=== PATIENT | female | born 1995 | race Caucasian/White ===

== ENCOUNTER 2016-12-13 18:29 | Emergency (ER) | payer OTHER ==
[2016-12-13 18:40] VITALS: BMI 18.3
[2016-12-13] MEDS ORDERED: SODIUM CHLORIDE 1,000 ML IV STA (20:47)
--- NOTE | 2016-12-13 20:55 | PDOC ---
*Physical Exam - Vital Signs Last Vital Signs Temp Pulse Resp BP Pulse Ox 98.5 F 95 H 20 136/89 100 12/13/16 18:34 12/13/16 18:34 12/13/16 18:34 12/13/16 18:34 12/13/16 18:34 ED Treatment Course - LABORATORY CBC & Chemistry Diagram: 12/13/16 20:36 12/13/16 20:36 Medical Decision Making - Medical Decision Making 12/13/16 20:54 Pt seen by the Advanced Practice Provider under my direct supervision Ancillary studies reviewed I agree with plan as outlined by the Advanced Practice Provider WILMA Staley *DC/Admit/Observation/Transfer Diagnosis at time of Disposition: Syncope - Discharge Dispostion Disposition: HOME - Referrals Referrals: Ophelia Workman MD [Primary Care Provider] - - Patient Instructions Printed Discharge Instructions: DI for Syncope in Adults (Fainting) Additional Instructions: FOLLOW UP WITH YOUR PRIMARY CARE PROVIDER THIS WEEK. CALL TO SCHEDULE APPOINTMENT. CONTINUE CURRENT MEDICATIONS WELL. RETURN IF ANY CONCERNS FOR FURTHER EVALUATION. Print Language: TAJIK - Post Discharge Activity Work/School Note: Back to Work
[2016-12-13 20:57] LABS: BASOPHIL 0.6 % (0-2.0); EOSINOPHIL 0.6 % (0-4.5); MCH 31.5 pg (25.7-33.7); MCHC 33.8 g/dl (32.0-36.0); MEAN CELL VOLUME 93.4 fl (80-96); PLATELET COUNT 300 K/MM3 (134-434); RDW 14.4 % (11.6-15.6); URINE APPEARANCE CLEAR; URINE BILIRUBIN NEGATIVE (NEGATIVE); URINE COLOR STRAW; URINE GLUCOSE (UA) NEGATIVE (NEGATIVE); URINE KETONE NEGATIVE (NEGATIVE); URINE LEUK ESTERASE NEGATIVE (NEGATIVE); URINE NITRITE NEGATIVE (NEGATIVE); URINE PROTEIN NEGATIVE (NEGATIVE); URINE UROBILINOGEN NEGATIVE E.U./dl (0.2-1.0); WHITE BLOOD COUNT 9.3 K/mm3 (4.0-10.0)
[2016-12-13 21:00] LABS: URINE BLOOD 1+ (NEGATIVE)
[2016-12-13 21:28] LABS: ALBUMIN 3.8 g/dl (3.4-5.0); ANION GAP 8 (8-16); CO2 27 mmol/L (21-32); CREATININE 0.7 mg/dL (0.55-1.02); GLUCOSE,RANDOM 84 mg/dL (74-106); SGOT/AST 22 U/L (15-37); SGPT/ALT 29 U/L (12-78); TOT PROT 6.9 g/dl (6.4-8.2)
[2016-12-13 21:35] LABS: ALK PHOS 78 U/L (45-117); BILIRUBIN,TOTAL 0.7 mg/dL (0.2-1.0)
--- NOTE | 2016-12-13 22:44 | PDOC ---
History of Present Illness - General Chief Complaint: Weakness Stated Complaint: S.O.B. Time Seen by Provider: 12/13/16 20:21 History Source: Patient Exam Limitations: No Limitations - History of Present Illness Initial Comments: 12/13/16 22:39 21yo Female patient w/ PmHx: Bulimia presents to ED with Mother c/o Syncope. Patient states while talking with her mother today, she had feelings of wanting to pass out, patient reports lips, hands, feet became tingling and she began hyperventilating prior to passing out. Patient states usually her electrolytes are abnormal but she has not purged since last night. Patient denies any other complaints at this time. LNMP: 2 days ago. Presenting Symptoms: Syncope Timing/Duration: reports: resolved prior to arrival Past History - Travel Traveled outside of the country in the last 30 days: No Close contact w/someone who was outside of country & ill: No - Past Medical History Allergies/Adverse Reactions: Allergies Allergy/AdvReac Type Severity Reaction Status Date / Time No Known Allergies Allergy Verified 12/13/16 18:38 Home Medications: Ambulatory Orders NK [No Known Home Medication] 10/07/15 Psychiatric Problems: Yes (depression, bulemia, bipolar, ANXIETY) - Psycho/Social/Smoking Cessation Hx Anxiety: Yes Suicidal Ideation: No Smoking History: Never smoked Have you smoked in the past 12 months: Yes Number of Cigarettes Smoked Daily: 2 Hx Alcohol Use: No Drug/Substance Use Hx: No Substance Use Type: None Cardiac Specific PMH - Complaint Specific PMHX Abdominal Aortic Aneurysm: No Angina: No Cardiac Arrhythmia: No Cardiac Stent: No GERD: No Myocardial Infarction: No Pacemaker: No Pulmonary Embolus: No Valvular Heart Disease: No Peripheral Vascular Disease: No Review of Systems - Review of Systems Able to Perform ROS?: Yes Is the patient limited Maori proficient: No Constitutional: No: Chills, Fever, Unintentional Wgt. Loss, Unexplained wgt Loss HEENTM: No: Nose Congestion, Throat Pain, Throat Swelling, Mouth Pain, Difficulty Swallowing, Mouth Swelling Respiratory: No: Cough, Shortness of Breath, Wheezing Cardiac (ROS): Yes: Palpitations, Syncope. No: Chest Pain, Edema, Lightheadedness, Chest Tightness ABD/GI: No: Constipated, Diarrhea, Nausea, Poor Appetite, Poor Fluid Intake, Rectal Bleeding, Vomiting : No: Dysuria, Flank Pain, Hematuria, Testicular Swelling, Testicular Pain Musculoskeletal: No: Back Pain, Gout, Joint Pain, Muscle Pain Integumentary: No: Bruising, Erythema, Rash Neurological: Yes: Tingling. No: Headache, Numbness, Seizure, Tremors, Weakness , Unsteady Gait, Ataxia, Dizziness Psychiatric: Yes: Other (See HPI) All Other Systems: Reviewed and Negative *Physical Exam - Vital Signs Last Vital Signs Temp Pulse Resp BP Pulse Ox 98.5 F 95 H 20 136/89 100 12/13/16 18:34 12/13/16 18:34 12/13/16 18:34 12/13/16 18:34 12/13/16 18:34 - Physical Exam General Appearance: Yes: Appropriately Dressed, Thin. No: Apparent Distress, Mild Distress, Moderate Distress, Severe Distress HEENT: positive: EOMI, ARMANI, Normal ENT Inspection, Normal Voice, Symmetrical, TMs Normal, Pharynx Normal. negative: Pharyngeal Erythema, Tonsillar Exudate, Tonsillar Erythema, Nasal Congestion, Rhinorrhea, TM Bulging, TM Dull, TM Erythema Neck: positive: Trachea midline, Supple. negative: Lymphadenopathy (R), Lymphadenopathy (L) Respiratory/Chest: positive: Lungs Clear, Normal Breath Sounds. negative: Respiratory Distress, Accessory Muscle Use, Labored Respiration, Rapid RR Cardiovascular: positive: Regular Rhythm, Regular Rate Gastrointestinal/Abdominal: positive: Normal Bowel Sounds, Soft. negative: Distended, Guarding, Rebound, Tenderness Musculoskeletal: positive: Normal Inspection. negative: CVA Tenderness Extremity: positive: Normal Capillary Refill, Normal Inspection, Normal Range of Motion. negative: Pedal Edema, Swelling, Calf Tenderness, Erythema, Inflammation Integumentary: positive: Normal Color, Dry, Warm Neurologic: positive: pin sticker II-XII NML intact, Fully Oriented, Alert, Normal Mood/ Affect, Normal Response, Motor Strength / ED Treatment Course - LABORATORY CBC & Chemistry Diagram: 12/13/16 20:36 12/13/16 20:36 - ADDITIONAL ORDERS Additional order review: Laboratory Results 12/13/16 12/13/16 20:36 20:36 Sodium 140 Potassium 3.9 Chloride 105 Carbon Dioxide 27 Anion Gap 8 BUN 6 L D Creatinine 0.7 D Creat Clearance w eGFR > 60 Random Glucose 84 Calcium 9.0 Total Bilirubin 0.7 D AST 22 ALT 29 D Alkaline Phosphatase 78 Total Protein 6.9 Albumin 3.8 Urine Color Straw Urine Appearance Clear Urine pH 8.0 D Ur Specific [place] 1.009 Urine Protein Negative Urine Glucose (UA) Negative Urine Ketones Negative Urine Blood 1+ H Urine Nitrite Negative Urine Bilirubin Negative Urine Urobilinogen Negative Ur Leukocyte Esterase Negative Urine HCG, Qual Negative 12/13/16 20:36 RBC 4.15 MCV 93.4 MCHC 33.8 RDW 14.4 MPV 8.0 Neutrophils % 62.0 D Lymphocytes % 25.7 D Monocytes % 11.1 H Eosinophils % 0.6 D Basophils % 0.6 - RADIOLOGY Radiology Studies Ordered: Category Date Time Status HEAD CT WITHOUT CONTRAST [CT] Stat CT Scan 12/14/16 00:01 Taken CHEST PA & LAT [RAD] Stat Radiology 12/13/16 22:38 Ordered - Medications Given in the ED: ED Medications Discontinued Medications Generic Name Dose Route Start Last Admin Trade Name Freq PRN Reason Stop Dose Admin Sodium Chloride 1,000 mls @ 1,000 mls/hr 12/13/16 20:47 12/13/16 20:59 Normal Saline - IV 12/13/16 21:46 1,000 mls/hr ASDIR STA Administration *DC/Admit/Observation/Transfer Diagnosis at time of Disposition: Syncope Qualifiers: Syncope type: unspecified Qualified Code(s): R55 - Syncope and collapse - Discharge Dispostion Disposition: HOME Condition at time of disposition: Improved Admit: No - Patient Instructions Printed Discharge Instructions: DI for Syncope in Adults (Fainting) Additional Instructions: FOLLOW UP WITH YOUR PRIMARY CARE PROVIDER THIS WEEK. CALL TO SCHEDULE APPOINTMENT. CONTINUE CURRENT MEDICATIONS WELL. RETURN IF ANY CONCERNS FOR FURTHER EVALUATION. Print Language: KHMER - Post Discharge Activity Work/School Note: Back to Work
[2016-12-14 01:03] VITALS: BP 130/76; PULSE 87; TEMP 97.9
--- NOTE | 2016-12-14 16:18 | EKG ---
Test Reason : Blood Pressure : / mmHG Vent. Rate : 079 BPM Atrial Rate : 079 BPM P-R Int : 136 ms QRS Dur : 086 ms QT Int : 364 ms P-R-T Axes : 031 048 006 degrees QTc Int : 417 ms NORMAL SINUS RHYTHM NONSPECIFIC T WAVE ABNORMALITY ABNORMAL ECG WHEN COMPARED WITH ECG OF 20-JAN-2016 00:43, NO SIGNIFICANT CHANGE WAS FOUND Confirmed by RAD SCHERER MD ([id number]) on 12/14/2016 4:18:20 PM Referred By: Confirmed By:RAD SCHERER MD
== END 2016-12-14 01:03 | disposition home or self-care (01) ==
LOC: JER 18:29
DX: R55 Syncope and collapse (principal); F50.2 Bulimia nervosa; F41.9 Anxiety disorder, unspecified; F31.9 Bipolar disorder, unspecified
CPT/HCPCS: 36415; 70450-TC; 80053; 81003; 81015; 84703; 85025; 93005; 93010; 99284-25

== ENCOUNTER 2018-12-19 15:35 | Emergency (ER) | payer OTHER ==
[2018-12-19 15:43] VITALS: BMI 21.2
--- NOTE | 2018-12-19 15:44 | PDOC ---
Rapid Medical Evaluation Chief Complaint: Pain, Acute Time Seen by Provider: 12/19/18 15:40 Medical Evaluation: Allergies Allergy/AdvReac Type Severity Reaction Status Date / Time No Known Allergies Allergy Verified 12/13/16 18:38 12/19/18 15:42 I have performed a brief in-person evaluation of this patient. The patient presents with a chief complaint of: 12wks with suprapbic cramping abdominal pains since this AM. Denies vaginal bleeding. Denies dysuria Pertinent physical exam findings: A&O x 3 in NAD I have ordered the following: UA, UCX, t&S. CBC,CMP The patient will proceed to the ED for further evaluation. Discharge Disposition - Diagnosis Abdominal pain during Qualifiers: Trimester: second trimester Qualified Code(s): O26.892 - Other specified related conditions, second trimester - Discharge Dispostion Condition at time of disposition: Stable - Referrals - Patient Instructions - Post Discharge Activity
[2018-12-19 16:00] LABS: BASO % 0.4 % (0-2.0); EOS % 0.1 % (0-4.5); HEMATOCRIT 33.2 % (32.4-45.2); HEMOGLOBIN 11.1 GM/dL (10.7-15.3); LYMPH % 12.4 % (8-40); MCH 29.6 pg (25.7-33.7); MCHC 33.4 g/dl (32.0-36.0); MEAN CELL VOLUME 88.7 fl (80-96); MEAN PLT VOLUME 6.9 fl (7.5-11.1); MONO % 3.6 % (3.8-10.2); NEUT % 83.5 % (42.8-82.8); PLATELET COUNT 408 K/MM3 (134-434); RBC 3.74 M/mm3 (3.60-5.2); RDW 13.5 % (11.6-15.6); WHITE BLOOD COUNT 11.4 K/mm3 (4.0-10.0)
--- NOTE | 2018-12-19 16:02 | PDOC ---
Attending Attestation - Physicial Exam PE: 12/19/18 17:25 GENERAL: Awake, alert, and fully oriented, in no acute distress HEAD: No signs of trauma EYES: PERRLA, EOMI, sclera anicteric, conjunctiva clear ENT: Auricles normal inspection, hearing grossly normal, nares patent, oropharynx clear without exudates. Moist mucosa NECK: Normal ROM, supple, no lymphadenopathy, JVD, or masses LUNGS: Breath sounds equal, clear to auscultation bilaterally. No wheezes, and no crackles HEART: (+)Tachy. Normal S1 and S2, no murmurs, rubs or gallops ABDOMEN: Soft, nontender, normoactive bowel sounds. No guarding, no rebound. No masses EXTREMITIES: Normal range of motion, no edema. No clubbing or cyanosis. No cords, erythema, or tenderness NEUROLOGICAL: Cranial nerves II through XII grossly intact. Normal speech. SKIN: Warm, Dry, normal turgor, no rashes or lesions noted PELVIC EXAM: Laying in position. Acutely tender LLQ, RLQ and suprapubic area. <Magui Helm - Last Filed: 12/19/18 17:27> - Resident Resident Name: Huyen Cunningham - ED Attending Attestation I have performed the following: I have examined & evaluated the patient, The case was reviewed & discussed with the resident, I agree w/resident's findings & plan, Exceptions are as noted - Medical Decision Making 12/19/18 16:02 I, Dr. Pily Rosenberg, DO, attest that this document has been prepared under my direction and personally reviewed by me in its entirety. I further attest, that it accurately reflects all work, treatment, procedures and medical decision -making performed by me. 12/19/18 16:36 a/p: 23yo at 12 weeks gestation with N/V and lower pelvic cramping -yellowish/white discharge, CMT -labs and ua sent from [facility] -will add GC/CHl -pt is taking oral vitamins -no diarrhea -pt in acute distress and uncomfortable -will add tvus to eval ovaries -tylenol for pain -ivf hydration -has not seen COUNTY AGENT for this preg 12/19/18 18:15 bedside ultrasound shows IUP with FHR 156 12/19/18 18:38 pt is 0+ 12/19/18 19:14 pt is 15 weeks gestation, placenta previa will treat cervicitis blood in urine, but no hydro, no uti pt stable for dc to home with tylenol for pain and follow up with COUNTY AGENT <Pily Rosenberg - Last Filed: 12/19/18 19:14> - HPI HPI: The patient is a 23 year old female (currently 12 weeks ), with a significant PMH of depression, bulimia, bipolar, and anxiety, who presents to the emergency department today complaining abdominal pain for one day. Patient describes the pain as intermittent, cramping, and a 6/10 in nature. Patient reports yellow discharge and decreased appetite. She endorses nausea and vomiting, but notes this has been her baseline secondary to her . LBM was yesterday and normal. The patient denies chest pain, shortness of breath, headache and dizziness. Denies fever, chills, nausea, vomit, diarrhea and constipation. Denies dysuria, frequency, urgency and hematuria. Denies vaginal bleeding. Allergies: NKA Past surgical history: None reported Social history: No reported PCP: Doesnt recall OBGYN: Doesnt recall 12/19/18 17:59 - Medical Decision Making EXAM#: TYPE/EXAM: RESULT: [id number] US/KIDNEY / RENAL US [id number] US/PELVIC / BLADDER US Abdominal pain. Blood in urine. Impression: Both kidneys appear unremarkable without gross evidence of stones or hydronephrosis. Partially distended urinary bladder without gross wall thickening. Bilateral ureteral jets were not visualized. Small amount of postvoid urine residue, 34 cc. Reported By: Bridger Hayden MD 12/19/18 18:46 EXAM#: TYPE/EXAM: RESULT: [id number] US/OB LIMITED US [id number] US/TRANSVAGINAL US PREG Lower abdominal pain. . Impression: Single live intrauterine with average sonographic gestational age of 15 weeks 2 days. Posterior placenta that appears to be reaching and covering the internal cervical os compatible with placenta previa. Close follow-up is needed. Reported By: Bridger Hayden MD 12/19/18 18:51 Documentation prepared by ZIA Rome, acting as chief medical director for Pily Rosenberg DO. 12/19/18 19:16 <Elisa Apple - Last Filed: 12/19/18 19:18> Heart Score/ECG Review - ECG Intrepretation Comment:: 12/19/18 16:54 sinus at 84, nl axis, nl interval, no acute st/t wave findings, nonspecific t wave inversions in III <Pily Rosenberg - Last Filed: 12/19/18 19:14> Attestations - Attestations 12/19/18 17:27 Documentation prepared by Magui Helm, acting as chief medical director for Pily Rosenberg DO. <Magui Helm - Last Filed: 12/19/18 17:27>
[2018-12-19 16:16] LABS: EPI CELLS 2.7 /HPF (0-5/HPF); PH,URINE 6.5 (5.0-8.0); URINE APPEARANCE CLEAR; URINE BACTERIA 32.8 /hpf (NEGATIVE); URINE BILIRUBIN NEGATIVE (NEGATIVE); URINE CASTS 1 /hpf (0-8); URINE COLOR YELLOW; URINE GLUCOSE (UA) NEGATIVE (NEGATIVE); URINE KETONE 2+ (NEGATIVE); URINE LEUK ESTERASE NEGATIVE (NEGATIVE); URINE NITRITE NEGATIVE (NEGATIVE); URINE PROTEIN NEGATIVE (NEGATIVE); URINE RBC 4 /hpf (0-4); URINE UROBILINOGEN 0.2 mg/dL (0.2-1.0); URINE WBC 2 /hpf (0-5)
--- NOTE | 2018-12-19 16:18 | PDOC ---
History of Present Illness - General Chief Complaint: Pain, Acute Stated Complaint: ABD PAIN 3MONTHS PG Time Seen by Provider: 12/19/18 15:40 - History of Present Illness Initial Comments: 23yo F currently 12 weeks presenting with abdominal pain. Patient describes the pain as similar to a menstrual cramp. It is rated 6/10 and started this morning. The pain is constant but get worse intermittently. She has not taken anything at home for her pain: "I've been able to take it" and decided to come to the ED upon prompting by family and friends. Patient endorses nausea and dry heaving that she attributes to , however, today she vomited once about two hours prior to history-taking. Does not currently endorse nausea. Last bowel movement was yesterday and was a normal formed brown stool without blood. Denies surgical history. Patient presented to [facility] two days ago and says they performed an ultrasound that confirmed an intrauterine . She was not able to make it to an munitions handler supervisor appointment two weeks ago, but has an appointment to see her munitions handler supervisor on 12/28/18. Denies vaginal bleeding. Endorses yellow discharge. No urinary symptoms. Has had a lessened appetite today. No fever or chills. PCP: Patient does not remember the name locomotive inspector: Patient does not remember the name Past History - Past Medical History Allergies/Adverse Reactions: Allergies Allergy/AdvReac Type Severity Reaction Status Date / Time No Known Allergies Allergy Verified 12/13/16 18:38 Home Medications: Ambulatory Orders Vit 93/Iron Fum/Folic [ Formula Tablet] 1 each PO DAILY COPD: No Disorders: No Psychiatric Problems: Yes (depression, bulemia, bipolar, ANXIETY) - Surgical History GI Surgery: No - Reproductive History Is Patient Now?: Yes (#): 1 Para: 0 Cervical CA: No Dysfunctional Uterine Bleeding: No Ectopic : No Endometrial CA: No Polycystic Ovaries: No Therapeutic (s) & number: No Tubal Ligation: No - Immunization History Immunization Up to Date: No - Suicide/Smoking/Psychosocial Hx Smoking History: Never smoked Have you smoked in the past 12 months: No Number of Cigarettes Smoked Daily: 2 Information on smoking cessation initiated: No Hx Alcohol Use: No Drug/Substance Use Hx: No Substance Use Type: None Review of Systems - Review of Systems Comments:: Constitutional: no fever, no chills HEENT: no throat pain, no dysphagia Cardiovascular: no chest pain, no palpitations Respiratory: no cough, no shortness of breath Gastrointestinal: +abdominal pain, +nausea Genitourinary: no dysuria, no frequency Musculoskeletal: no myalgia, no arthralgia Skin: no rash, no itching Neurologic: no headache, no weakness *Physical Exam - Vital Signs Last Vital Signs Temp Pulse Resp BP Pulse Ox 98.6 F 94 H 18 136/79 98 12/19/18 15:40 12/19/18 15:40 12/19/18 15:40 12/19/18 15:40 12/19/18 16:05 - Physical Exam Comments: General: Awake, alert, and fully oriented, laying in position Head: No signs of trauma Eyes: EOMI, sclera anicteric ENT: Moist mucus membranes Neck: Normal ROM, supple Lungs: Lungs clear, Normal breath sounds Cardio: Regular rhythm, S1 and S2 present Abdomen: Tender to palpation most focal to suprapubic region and LLQ. No CVA tenderness. Extremities: Normal range of motion, Distal pulses present SKIN: Warm, Dry, normal turgor Neurologic: Cranial nerves II through XII grossly intact. Normal speech Pelvic exam: External genitalia without erythema, exudate or discharge. Vaginal vault is with white-yellow discharge. Cervix is of normal color without lesion. There is no bleeding noted. Uterus is noted to be of appropriate size and nontender. Cervical motion tenderness is elicited. No masses are palpated. The adnexa are without masses or tenderness. ED Treatment Course - LABORATORY CBC & Chemistry Diagram: 12/19/18 15:47 12/19/18 15:47 - ADDITIONAL ORDERS Additional order review: Laboratory Results 12/19/18 15:45 Urine Color Yellow Urine Appearance Clear Urine pH 6.5 Ur Specific [place] 1.019 Urine Protein Negative Urine Glucose (UA) Negative Urine Ketones 2+ H Urine Blood 1+ H Urine Nitrite Negative Urine Bilirubin Negative Urine Urobilinogen 0.2 Ur Leukocyte Esterase Negative Urine WBC (Auto) 2 Urine RBC (Auto) 4 Urine Casts (Auto) 1 U Epithel Cells (Auto) 2.7 Urine Bacteria (Auto) 32.8 12/19/18 15:47 RBC 3.74 MCV 88.7 MCHC 33.4 RDW 13.5 MPV 6.9 L D Neutrophils % 83.5 H D Lymphocytes % 12.4 D Monocytes % 3.6 L Eosinophils % 0.1 D Basophils % 0.4 Medical Decision Making - Medical Decision Making 23yo F currently 12 weeks presenting with abdominal pain. DDX including but not limited to threatened , ovarian torsion, tubo- ovarian abscess, cervicitis 1LNS, 1g Ofirmev, 4mg Zofran TVUS, Renal US Labs Bedside transabdominal ultrasound confirmed IUP with FHR of 156 Patient reporting improvement in pain after receiving medicines, now less than 12/19/18 17:35 No anemia, slight leukocytosis WBC=11.4 CMP within normal limits UA with 1+ blood and bacteriuria (likely from cervicitis)>> Bladder/Renal US ordered Treating for cervicitis: Ceftriaxone 250mg IM and Azithromycin 1000mg po Will reassess 12/19/18 19:19 US reports: Single live intrauterine with average sonographic gestational age of 15 weeks 2 days. Posterior placenta that appears to be reaching and covering the internal cervical os compatible with placenta previa. Close follow-up is needed. Both kidneys appear unremarkable without gross evidence of stones or hydronephrosis. Partially distended urinary bladder without gross wall thickening. Bilateral ureteral jets were not visualized. Small amount of postvoid urine residue, 34 cc. 12/19/18 19:21 While placenta is covering cervical os, patient is still under 20 weeks and the placenta may migrate. She is amenable to following-up with her munitions handler supervisor. Advised pelvic rest. Patient discharged 12/19/18 19:58 *DC/Admit/Observation/Transfer Diagnosis at time of Disposition: Cervicitis Abdominal pain during Qualifiers: Trimester: second trimester Qualified Code(s): O26.892 - Other specified related conditions, second trimester - Discharge Dispostion Disposition: HOME Condition at time of disposition: Stable - Referrals Schedule a call back: test result Referrals: Isela Santiago MD [Primary Care Provider] - Mahesh Serrano MD [Staff Physician] - - Patient Instructions Printed Discharge Instructions: DI for Placenta Previa, DI for Abdominal Pain - - Early , DI for Acute Cervicitis Additional Instructions: You were seen in the Emergency Department for abdominal pain. Your hormone (beta-Hcg) was 89147.5 today. We treated you for cervicitis in the department with antibiotics. Ultrasound indicated something called previa which cannot be diagnosed until after 20 weeks of . Pelvic rest is recommended until your munitions handler supervisor says otherwise. Do not place anything in the vagina. Follow-up with your munitions handler supervisor specialist at your appointment. Call to see if your appointment can be moved up. In case you are not able to see your doctor, we have referred you to another munitions handler supervisor specialist. Return to the Emergency Department if you experience: -heavy bleeding (more than two pads per hour for two hours) -severe pain -lightheadedness -shortness of breath -high fever -any other concerning symptoms - Post Discharge Activity
[2018-12-19 16:27] LABS: ALBUMIN 3.3 g/dl (3.4-5.0); ALK PHOS 57 U/L (45-117); ANION GAP 13 MMOL/L (8-16); BILIRUBIN,TOTAL 0.6 mg/dL (0.2-1); BLOOD UREA NITROGEN 9 mg/dL (7-18); CALCIUM 7.7 mg/dL (8.5-10.1); CHLORIDE 101 mmol/L (98-107); CO2 22 mmol/L (21-32); CREATININE 0.6 mg/dL (0.55-1.3); GLUCOSE,RANDOM 76 mg/dL (74-106); SGOT/AST 40 U/L (15-37); SGPT/ALT 22 U/L (13-61); SODIUM 136 mmol/L (136-145); TOT PROT 6.9 g/dl (6.4-8.2)
[2018-12-19] MEDS ORDERED: SODIUM CHLORIDE 1,000 ML IV STA (16:37)
[2018-12-19] MEDS ORDERED: ONDANSETRON 4 MG/2 ML VIAL IVPUSH ONE (16:37)
[2018-12-19] MEDS ORDERED: ACETAMINOPHEN 1000 MG/100 ML VIAL (NON FORMULARY) IVPB ONE ×2 (16:40→16:56)
[2018-12-19] MEDS ORDERED: ACETAMINOPHEN INJECTION 100 ML IVPB ONE (16:45)
[2018-12-19] MEDS ORDERED: ONDANSETRON 4 MG/2 ML VIAL ONE (17:02)
[2018-12-19] MEDS ORDERED: AZITHROMYCIN 500 MG TABLET PO ONE (19:15)
[2018-12-19 19:58] VITALS: BP 128/76; PULSE 88; TEMP 98.2
--- NOTE | 2018-12-20 10:23 | EKG ---
Test Reason : Blood Pressure : / mmHG Vent. Rate : 084 BPM Atrial Rate : 084 BPM P-R Int : 132 ms QRS Dur : 090 ms QT Int : 360 ms P-R-T Axes : 043 060 015 degrees QTc Int : 425 ms NORMAL SINUS RHYTHM NORMAL ECG WHEN COMPARED WITH ECG OF 13-DEC-2016 23:45, NO SIGNIFICANT CHANGE WAS FOUND Confirmed by DAVID BRUCE MD ([id number]) on 12/20/2018 10:23:21 AM Referred By: Confirmed By:DAVID BRUCE MD
== END 2018-12-19 20:03 | disposition home or self-care (01) ==
LOC: JER 15:35
PROC: BY4CZZZ Ultrasonography of Second Trimester, Single Fetus (ICD-10-PCS; principal; 2018-12-19)
PROC: 3E02329 Introduction of Other Anti-infective into Muscle, Percutaneous Approach (ICD-10-PCS; 2018-12-19)
PROC: 3E0337Z Introduction of Electrolytic and Water Balance Substance into Peripheral Vein, Percutaneous Approach (ICD-10-PCS; 2018-12-19)
PROC: 3E033GC Introduction of Other Therapeutic Substance into Peripheral Vein, Percutaneous Approach (ICD-10-PCS; 2018-12-19)
PROC: 3E033NZ Introduction of Analgesics, Hypnotics, Sedatives into Peripheral Vein, Percutaneous Approach (ICD-10-PCS; 2018-12-19)
DX: O26.892 Other specified pregnancy related conditions, second trimester (principal); O23.512 Infections of cervix in pregnancy, second trimester; Z3A.15 15 weeks gestation of pregnancy
CPT/HCPCS: 36415; 76775-TC; 76815; 76817-TC; 76856-TC; 80053; 81003; 84702; 85025; 86850; 86900; 86901; 87086; 87491; 87591; 93005; 93010; 99284-25; J0131; J7030

== ENCOUNTER 2019-05-25 20:10 | Inpatient (IN) | payer OTHER ==
--- NOTE | 2019-05-25 20:24 | PN ---
Progress Note (short form) - Note Progress Note: cx closed, vx -3 mi, fhr cat 1, no contraction, cervidil risks discussed , ulternatives explained , agreed to have cervidil induction
--- NOTE | 2019-05-25 20:32 | HP ---
Past Medical History - Primary Care Physician PCP:: Rogerio Fair - Admission Chief Complaint: 37.5 eeks, IUGR, for cervidil induction History of Present Illness: 24 yo edc by elsa 06/10/2019, with hx of IUGR admitted for cervidil induction, risks discussed , cx clp, vx -3 mi, fhr cat 1 History Source: Patient Limitations to Obtaining History: No Limitations - Past Medical History ...: 1 ...Para: 0 ...EDC by Elsa: 06/10/19 Heme/Onc: Yes: Anemia - Past Surgical History Hx Myomectomy: No Hx Transabdominal Cerclage: No - Smoking History Smoking history: Never smoked Have you smoked in the past 12 months: No Aproximately how many cigarettes per day: 2 - Alcohol/Substance Use Hx Alcohol Use: No - Social History Usual Living Arrangement: Yes: With Spouse History of Recent Travel: No Home Medications - Allergies Allergies/Adverse Reactions: Allergies Allergy/AdvReac Type Severity Reaction Status Date / Time No Known Allergies Allergy Verified 05/24/19 11:29 - Home Medications Home Medications: Ambulatory Orders Vit 93/Iron Fum/Folic [ Formula Tablet] 1 each PO DAILY Ferrous Sulfate [Feosol] 325 mg PO BID 05/24/19 Review of Systems - Review of Systems Constitutional: reports: No Symptoms Eyes: reports: No Symptoms HENT: reports: No Symptoms Neck: reports: No Symptoms Cardiovascular: reports: No Symptoms Respiratory: reports: No Symptoms Gastrointestinal: reports: No Symptoms Genitourinary: reports: No Symptoms Breasts: reports: No Symptoms Reported Musculoskeletal: reports: No Symptoms Integumentary: reports: No Symptoms Neurological: reports: No Symptoms Endocrine: reports: No Symptoms Hematology/Lymphatic: reports: No Symptoms Psychiatric: reports: No Symptoms Physical Exam - Maternity Constitutional: Yes: Well Nourished, No Distress, Calm Eyes: Yes: WNL, Conjunctiva Clear, EOM Intact HENT: Yes: WNL, Atraumatic, Normocephalic Neck: Yes: WNL, Supple, Trachea Midline Cardiovascular: Yes: WNL, Regular Rate and Rhythm Breast(s): Yes: WNL - Abdominal Exam/OB Fundal Height: 36 Number of Fetuses: Single Presentation: Vertex Contractions: No Intensity: Unaware Monitor Mode: External Heart Rate Location: [facility] Category: I Accelerations: Non-Uniform Decelerations: None - Vaginal Exam/OB Vaginal Bleediing: No Speculum Exam: No Dilatation (cm): closed Effacement (%): 0 Amniotic Membrane Status: Intact Station: -4 - Physical Exam Musculoskeletal: Yes: WNL Edema: Yes Edema: LLE: Trace, RLE: Trace Deep Tendon Reflex Grade: Normal +2 ...Motor Strength: WNL Psychiatric: Yes: WNL Hemorrhage Risk Assessment - Risk Factors Medium Risk Factors: Yes: None High Risk Factors: Yes: None Risk Score: 1 Risk Level: Medium Risk Problem List - Problems (1) with 37 weeks completed gestation Code(s): Z3A.37 - 37 WEEKS GESTATION OF (2) IUGR (intrauterine growth restriction) affecting care of mother Code(s): O36.5990 - MATERN CARE FOR OTH OR SUSP POOR FETL GRTH, UNSP TRI, UNSP Qualifiers: Fetus number: single or unspecified fetus Trimester: third trimester Qualified Code(s): O36.5930 - Maternal care for other known or suspected poor growth, third trimester, not applicable or unspecified Assessment/Plan admit, FHM cervidil induction GBS negative
[2019-05-25] MEDS ORDERED: BUTORPHANOL TARTRATE 1 MG/ML VIAL IVPUSH ONE (20:35)
[2019-05-25] MEDS ORDERED: PROMETHAZINE HCL 25 MG/1 ML VIAL IVPUSH ONE (20:35)
[2019-05-25] MEDS ORDERED: DINOPROSTONE 10 MG VAGINAL SUPPOSITORY VG ONE (21:30)
[2019-05-25] MEDS: DEXTROSE 5%-LACTATED RINGERS 1,000 ML IV SCH (21:30)
[2019-05-25 21:51] LABS: EOS % 0.4 % (0-4.5); HEMATOCRIT 25.7 % (32.4-45.2); HEMOGLOBIN 7.9 GM/dL (10.7-15.3); LYMPH % 24.8 % (8-40); MCHC 30.6 g/dl (32.0-36.0); MEAN CELL VOLUME 68.6 fl (80-96); MEAN PLT VOLUME 8.2 fl (7.5-11.1); MONO % 9.2 % (3.8-10.2); NEUT % 64.6 % (42.8-82.8); PLATELET COUNT 314 K/MM3 (134-434); RBC 3.75 M/mm3 (3.60-5.2); RDW 16.6 % (11.6-15.6)
[2019-05-25 22:00] VITALS: BMI 26.5
[2019-05-25 22:00] LABS: INR 0.99 (0.83-1.09); PROTHROMBIN TIME (PATIENT) 11.7 SEC (9.7-13.0)
[2019-05-25 22:03] LABS: ACTIVATED PTT 28.4 SECONDS (25.2-36.5)
[2019-05-25 22:09] LABS: CALCIUM 8.9 mg/dL (8.5-10.1); CREATININE 0.5 mg/dL (0.55-1.3); POTASSIUM 3.8 mmol/L (3.5-5.1)
[2019-05-25 22:11] LABS: BLOOD UREA NITROGEN 2.6 mg/dL (7-18)
[2019-05-25 22:47] LABS: MACROCYTOSIS 1+; OVALOCYTE 1+; PLATELET ESTIMATE NORMAL
[2019-05-26] MEDS: DEXTROSE 5%-LACTATED RINGERS 1,000 ML IV SCH ×3 (01:45→13:40)
--- NOTE | 2019-05-26 02:04 | PN ---
Progress Note (short form) - Note Progress Note: cx closed , 50 vx -3 mi, fhr cat 1, regular contraction q 2 min Problem List - Problems (1) with 37 weeks completed gestation Code(s): Z3A.37 - 37 WEEKS GESTATION OF (2) IUGR (intrauterine growth restriction) affecting care of mother Code(s): O36.5990 - MATERN CARE FOR OTH OR SUSP POOR FETL GRTH, UNSP TRI, UNSP Qualifiers: Fetus number: single or unspecified fetus Trimester: third trimester Qualified Code(s): O36.5930 - Maternal care for other known or suspected poor growth, third trimester, not applicable or unspecified
[2019-05-26] MEDS ORDERED: OXYTOCIN 30 UNITS in 0.9% NS 30 UNIT/500 ML INFUS.BAG IVPB ONE (08:38)
--- NOTE | 2019-05-26 09:08 | PN ---
Progress Note (short form) - Note Progress Note: cx closed 50 vx -4 mi, fhr cat 1, conraction ,mild q 3 min , cervidil was removed , pitocin risks discussed , Problem List - Problems (1) with 37 weeks completed gestation Code(s): Z3A.37 - 37 WEEKS GESTATION OF (2) IUGR (intrauterine growth restriction) affecting care of mother Code(s): O36.5990 - MATERN CARE FOR OTH OR SUSP POOR FETL GRTH, UNSP TRI, UNSP Qualifiers: Fetus number: single or unspecified fetus Trimester: third trimester Qualified Code(s): O36.5930 - Maternal care for other known or suspected poor growth, third trimester, not applicable or unspecified
[2019-05-26] MEDS ORDERED: OXYTOCIN 30 UNITS in 0.9% NS 30 UNIT/500 ML INFUS.BAG IVPB SCH (09:15)
[2019-05-26] MEDS ORDERED: BUTORPHANOL TARTRATE 1 MG/ML VIAL ONE ×2 (13:36)
[2019-05-26] MEDS ORDERED: PROMETHAZINE HCL 25 MG/1 ML VIAL ONE (13:37)
[2019-05-26] MEDS: ELECTROLYTE-148 SOLN 1,000 ML IV SCH ×2 (15:15→18:00)
--- NOTE | 2019-05-26 15:18 | PN ---
Progress Note (short form) - Note Progress Note: had SROM at 150pm , has regular contraction, very uncomfortable , cx 1 cm 70 vx -3 mr, clear fluid , FH tracing reactive with head compression with contractions , will reduce pitocin rate to 4 u. LT side , o2 , requesting epidural will revaluate in 1/2 hour Problem List - Problems (1) with 37 weeks completed gestation Code(s): Z3A.37 - 37 WEEKS GESTATION OF (2) IUGR (intrauterine growth restriction) affecting care of mother Code(s): O36.5990 - MATERN CARE FOR OTH OR SUSP POOR FETL GRTH, UNSP TRI, UNSP Qualifiers: Fetus number: single or unspecified fetus Trimester: third trimester Qualified Code(s): O36.5930 - Maternal care for other known or suspected poor growth, third trimester, not applicable or unspecified
[2019-05-26] MEDS ORDERED: LIDO 2%/EPI 1:200000 PRESRVFRE (20 ML SDVIAL) ONE (15:22)
[2019-05-26] MEDS ORDERED: BUPIVACAINE HCL/PF 2.5 MG/ML - 30 ML VIAL IJ ONE (15:23)
[2019-05-26] MEDS ORDERED: ELECTROLYTE-148 SOLN 1,000 ML IV SCH (15:30)
[2019-05-26] MEDS ORDERED: FENTANYL/BUPIVACAINE/NS/PF - PCEA - 50 ML DISP.SYRIN EP ONE ×2 (15:42→21:15)
[2019-05-26] MEDS ORDERED: NALOXONE HCL 0.4 MG/ML VIAL IVPUSH PRN (15:44)
[2019-05-26] MEDS ORDERED: FENTANYL/BUPIVACAINE/NS/PF - PCEA - 50 ML DISP.SYRIN EP SCH (15:45)
[2019-05-27] MEDS ORDERED: FENTANYL/BUPIVACAINE/NS/PF - PCEA - 50 ML DISP.SYRIN EP ONE (00:43)
[2019-05-27] MEDS ORDERED: ACETAMINOPHEN INJECTION 100 ML IVPB ONE (00:54)
[2019-05-27] MEDS ORDERED: CEFAZOLIN 2 GM/D5W 2 GM/50 ML ML IVPB ONE (00:55)
[2019-05-27] MEDS ORDERED: morphine SULFATE/PF 0.5 MG/ML (2cc Syringe - QUVA) EP ONE ×2 (01:12→01:21)
[2019-05-27] MEDS ORDERED: ONDANSETRON 4 MG/2 ML VIAL IVPUSH PRN (01:12)
[2019-05-27] MEDS ORDERED: LIDO 2%/EPI 1:200000 PRESRVFRE (20 ML SDVIAL) ONE (01:18)
--- NOTE | 2019-05-27 01:19 | PN ---
Progress Note, Labor Vaginal Exam #4 Labor Exam Date: 05/27/19 Labor Exam Time: 01:00 Heart Rate (range): 200 Dilatation: 8 Effacement (%): 90 Amniotic Membrane Status: Ruptured Presentation: Vertex/Position Station: -3 Remarks: Prolonged, 1hr, tachycardia, with good variability not resolving despite IVfluid bolus, position change, O2 by face mask Primary c/section recommended consent signed
[2019-05-27] MEDS ORDERED: METHYLERGONOVINE MALEATE 0.2 MG/1 ML AMP IM PRN ×2 (01:28)
[2019-05-27] MEDS ORDERED: WITCH HAZEL 50% (TUCKS) 40 PAD/JAR PAD TP PRN (01:28)
[2019-05-27] MEDS ORDERED: BENZOCAINE 20% 57 GM BOTTLE TP PRN (01:28)
[2019-05-27] MEDS ORDERED: ceFAZolin SODIUM 1 GM VIAL ONE (01:28)
[2019-05-27] MEDS ORDERED: IBUPROFEN 800 MG/8 ML IJ IVPB PRN (01:28)
[2019-05-27] MEDS ORDERED: diphenhydrAMINE HCL 25 MG CAPSULE (FP) PO PRN (01:28)
[2019-05-27] MEDS ORDERED: oxyCODONE HCL 5 MG TABLET PO PRN (01:28)
[2019-05-27] MEDS ORDERED: BENZOCAINE 28 GM HEMORRHOIDAL OINTMENT PR PRN (01:28)
[2019-05-27] MEDS ORDERED: DEXTROSE 5%-LACTATED RINGERS 1,000 ML IV SCH (01:30)
[2019-05-27] MEDS ORDERED: OXYTOCIN 20 UNITS in 0.9% NS 20 UNIT/1,000 ML INFUS.BAG IV SCH (01:30)
--- NOTE | 2019-05-27 01:35 | OP ---
Operative Note - Note: Operative Date: 05/27/19 Pre-Operative Diagnosis: 24yo P0 with tachycardia, suspected Chorioamnionitis, IUGR Operation: Primary c/section Findings: 1. Viable Female, 9/9, 5.6lb 2. Placenta to pathology 3. Normal bilateral tubes and ovaries Post-Operative Diagnosis: Same as Pre-op Surgeon: Jessy Arreguin [employer] Team Member: Daniel uDnlap Anesthesiologist/AUTOMATIC HEMMER: Sylvain Morris Anesthesia: Epidural Estimated Blood Loss (mls): 500 Drains, Volume Out (mls): 400 Fluid Volume Replaced (mls): 1,200 Operative Report Dictated: Yes
--- NOTE | 2019-05-27 01:35 | PN ---
Delivery - Delivery Section: Primary Type of Anesthesia: Epidural Episiotomy/Laceration: None EBL (cc): 500 Delivery, Single - Stages of Labor Date 1st Stage Initiatied: 05/26/19 Time 1st Stage Initiated: 15:00 Date of Delivery: 05/27/19 Time of Delivery: 01:52 Date Placenta Delivered: 05/27/19 Time Placenta Delivered: 01:53 Placenta: Yes: Expressed - Condition of Clothing Sorter/Bead Wire Insulator Present: Yes Name: Sammi Holman Gender: Female Weight: 5 lb 6 oz Position: Right, OA - 1 Minute Total Score: 9 5 Minutes Total Score: 9 - Feeding Plan Initial Plan: Elected not to breastfeed exclusively throughout hospitalization Remarks - Remarks Remarks: Uncomplicated delivery of head and shoulders Uterus closed in 2 layers peritoneum, muscle closed with 0-Bycin Fascia closed with 0 Vycril
[2019-05-27] MEDS: CEFAZOLIN 1 GM/D5W 1 GM/50 ML BAG IVPB SCH ×2 (01:45→10:57)
[2019-05-27] MEDS ORDERED: OXYTOCIN 10 UNITS/ML VIAL ONE (01:49)
[2019-05-27] MEDS ORDERED: OXYTOCIN 20 UNITS in 0.9% NS 20 UNIT/1,000 ML INFUS.BAG IV ONE (02:07)
[2019-05-27] MEDS: DEXTROSE 5%-LACTATED RINGERS 1,000 ML IV SCH (04:04)
--- NOTE | 2019-05-27 06:49 | OP ---
DATE OF OPERATION: 05/27/2019 PREOPERATIVE DIAGNOSIS: A 24-year-old para 0 at 37 weeks with tachycardia, suspected chorioamnionitis, intrauterine growth restriction. PROCEDURE PERFORMED: Primary section. POSTOPERATIVE DIAGNOSIS: A 24-year-old para 0 at 37 weeks with tachycardia, suspected chorioamnionitis, intrauterine growth restriction. FINDINGS: Viable female, scores of 9 and 9, weighing 5.6 pounds. Placenta to pathology. Normal bilateral tubes and ovaries. SURGEON: Jessy Arreguin M.D. BLACKSMITH HELPER: LINDY Medrano ANESTHESIOLOGIST: Sylvain Morris M.D. ANESTHESIA: Epidural. DESCRIPTION OF PROCEDURE: After ensuring informed consent, the patient was brought to the operating room, where she was placed in the dorsal supine position with a left lateral tilt. The abdomen was prepped and draped in sterile fashion. A Pfannenstiel incision was carried out with a scalpel and brought down to the level of the fascia with Bovie cautery. The fascia was incised in the midline and extended bilaterally with Bovie cautery. The fascia was dissected off the rectus abdominis muscle with Bovie cautery. The muscle was split in the midline. The peritoneum was tented and incised sharply, with good visualization of underlying abdominal organs. The peritoneal incision was extended laterally and superiorly and inferiorly. The bladder was retracted with a Murray. The gutters were packed with 2 lap sponges. The vesicouterine peritoneum was identified, tented with pickups and incised with Metzenbaum scissors, dissected off the lower uterine segment and retracted with the Murray. A uterine incision was created with the scalpel and extended bilaterally with bandage scissors. The head was delivered atraumatically in the AVANI position. The rest of the 's body was delivered atraumatically. The cord was clamped and cut. The was handed to awaiting pediatricians. The placenta was expressed. Cord sent for blood gases. The uterus was cleared of clots and debris, and repaired with 0 Biosyn in 2 layers, one locking and one imbricating. The gutters were cleared of clots and debris. The abdomen was irrigated. The peritoneum was repaired with 0 Biosyn after assuring excellent hemostasis in the abdominal cavity. The muscle was reapproximated with 0 Biosyn, and fascia closed with 0 Vicryl. Subcutaneous sutures were placed to reapproximate the Pfannenstiel incision, and the Pfannenstiel incision was closed with 4-0 Biosyn V-Loc suture. Excellent hemostasis throughout. ESTIMATED BLOOD LOSS: 500 mL. URINE OUTPUT: 400 mL. The patient received 1200 mL of IV fluids. She tolerated the procedure well. Instrument and sponge count was correct x2. The patient was brought to the recovery room in stable condition. Isabella [id number]
[2019-05-27] MEDS: IBUPROFEN 600 MG TABLET (FP) PO PRN (23:11)
[2019-05-27] MEDS: SIMETHICONE 80 MG TAB.CHEW (FP) PO PRN (23:11)
[2019-05-27] MEDS: oxyCODONE HCL 5 MG TABLET PO PRN (23:12)
[2019-05-28] MEDS ORDERED: BISACODYL 10 MG SUPP.RECT RC PRN (01:29)
[2019-05-28 07:26] LABS: BASO % 0.5 % (0-2.0); EOS % 1.9 % (0-4.5); HEMATOCRIT 21.5 % (32.4-45.2); LYMPH % 12.7 % (8-40); MCH 20.7 pg (25.7-33.7); MCHC 30.2 g/dl (32.0-36.0); MEAN CELL VOLUME 68.6 fl (80-96); MEAN PLT VOLUME 7.8 fl (7.5-11.1); MONO % 7.3 % (3.8-10.2); NEUT % 77.6 % (42.8-82.8); PLATELET COUNT 269 K/MM3 (134-434); RBC 3.13 M/mm3 (3.60-5.2); RDW 16.6 % (11.6-15.6); WHITE BLOOD COUNT 12.3 K/mm3 (4.0-10.0)
[2019-05-28 07:37] LABS: HEMOGLOBIN 6.5 GM/dL (10.7-15.3)
--- NOTE | 2019-05-28 10:23 | CONSULT ---
Consultation: REQUESTING PROVIDER: Dr. Simon (OBGyn) CONSULT REQUEST: We have been asked to medically evaluate this patient for Eye irritation. HISTORY OF PRESENT ILLNESS: 24 y/o F with PMHx of iron deficiency anemia, who recently delivered via c- section, present with b/l lower eyelid swelling. Patient had SROM, with prolonged delivery yesterday requiring (EBL 500mls, Fluid volume replaced 1200). After delivery, patient woke b/l itchiness of her eyes and worsening swelling of the lower eyelid. She mentions increasing eye rheum without associated discharge, and feels her eyelids are stuck together. She has had this in the past and says it typically occurs with her seasonal allergies. Her itchiness has improved with Diphenhydramine however the puffiness underneath her eyes persists. No associated changes in vision. She additionally complains of feeling a particle underneath her eyelids and is unable to remove it. Denies any associated fevers, chills, chest pain, SOB, nausea, vomiting, diarrhea, constipation. REVIEW OF SYSTEMS: As per HPI PHYSICAL EXAMINATION Vital Signs Temperature 98 F 05/28/19 01:50 Pulse Rate 75 05/28/19 01:50 Respiratory Rate 18 05/28/19 01:50 Blood Pressure 102/51 L 05/28/19 01:50 O2 Sat by Pulse Oximetry (%) 98 05/27/19 04:15 GENERAL: A&Ox3, NAD HEAD: NCAT EYES: PERRL, EOMI, No conjunctival Injection, No pain with movement or tenderness to palpation of surrounding tissue, no changes in vision, does not see flashers/floaters, No corneal ulcer present, No surrounding orbital cellulitis. ENT: Oropharynx clear without exudates. Moist mucous membranes. NECK: No JVD LUNGS: CTAB, No wheezes, no crackles HEART: Regular rate and rhythm, normal S1 and S2 without murmur ABDOMEN: Soft, nontender, not distended, hypoactive bowel sounds, no guarding, no rebound, Surgical dressing in the lower abdomen CDI EXTREMITIES: 2+ pulses, No peripheral edema. NEUROLOGICAL: Cranial nerves II-XII intact. Normal speech. SKIN: Warm, dry Laboratory Results - last 24 hr 05/25/19 05/25/19 05/28/19 20:45 20:45 06:45 WBC 12.3 H RBC 3.13 L Hgb 6.5 L* Hct 21.5 L D MCV 68.6 L MCH 20.7 L MCHC 30.2 L RDW 16.6 H Plt Count 269 MPV 7.8 Absolute Neuts (auto) 9.5 H Neutrophils % 77.6 D Lymphocytes % 12.7 D Monocytes % 7.3 Eosinophils % 1.9 D Basophils % 0.5 Nucleated RBC % 0 Sodium 137 Potassium 3.8 Chloride 105 Carbon Dioxide 24 Anion Gap 8 BUN 2.6 L* Creatinine 0.5 L Est GFR (CKD-EPI)AfAm 157.00 Est GFR (CKD-EPI)NonAf 135.46 Random Glucose 72 L Calcium 8.9 Crossmatch See Detail Active Medications Benzocaine (Americaine 20% Haynes -) 1 spray TP PRN PRN PRN Reason: Pain - Topical Benzocaine (Americaine Ointment -) 1 applic IL PRN PRN PRN Reason: Pain - Topical Bisacodyl (Dulcolax Suppository -) 10 mg RC PRN PRN PRN Reason: CONSTIPATION Diphenhydramine HCl (Benadryl Injection -) 25 mg IVPUSH Q4H PRN PRN Reason: Pruritis Last Admin: 05/27/19 14:27 Dose: 25 mg Diphenhydramine HCl (Benadryl -) 25 mg PO Q8H PRN PRN Reason: FOR ITCHING Ibuprofen (Motrin -) 600 mg PO Q4H PRN PRN Reason: PAIN LEVEL 1 - 3 Last Admin: 05/27/19 23:11 Dose: 600 mg Ibuprofen (Caldolor Injection -) 800 mg IVPB Q6H PRN PRN Reason: PAIN > 5 if PO not effective. Last Admin: 05/27/19 12:26 Dose: 800 mg Methylergonovine Maleate (Methergine Injection -) 0.2 mg IM Q4H PRN PRN Reason: Excessive Bleeding (L&D) Naloxone HCl (Narcan -) 0.4 mg IVPUSH PRN PRN PRN Reason: Sedation Ondansetron HCl (Zofran Injection) 4 mg IVPUSH Q4H PRN PRN Reason: NAUSEA Oxycodone HCl (Roxicodone -) 5 mg PO Q4H PRN PRN Reason: PAIN LEVEL 4 - 6 Last Admin: 05/27/19 23:12 Dose: 5 mg Oxycodone HCl (Roxicodone -) 10 mg PO Q4H PRN PRN Reason: PAIN LEVEL 7 - 10 Senna/Docusate Sodium (Pericolace -) 2 tablet PO HS PRN PRN Reason: CONSTIPATION Simethicone (Mylicon -) 80 mg PO Q4H PRN PRN Reason: GAS Last Admin: 05/27/19 23:11 Dose: 80 mg Witch Shahla/Glycerin (Tucks Pads -) 1 pad TP PRN PRN PRN Reason: Pain - Topical ASSESSMENT/PLAN: 24 y/o F with PMHx of iron deficiency anemia, who recently delivered via c- section, present with b/l lower eyelid swelling. #B/L Lower eyelid swelling, Improving -Likely due to seasonal allergy flair vs Allergic reaction -Continue Diphenydramine 25 Q6H Ronald x 4 doses, will transition to PRN after pending Improvement #Acute blood loss anemia -In the setting of recent -Continue pRBC transfusion as per OBGyn with follow up CBC Dispo: We will continue to follow the patient. Thank you for this consultative opportunity. Visit type - Emergency Visit Emergency Visit: No - New Patient This patient is new to me today: Yes Date on this admission: 05/28/19 - Critical Care Critical Care patient: No ATTENDING PHYSICIAN STATEMENT I saw and evaluated the patient. I reviewed the resident's note and discussed the case with the resident. I agree with the resident's findings and plan as documented. SUBJECTIVE: OBJECTIVE: ASSESSMENT AND PLAN:
[2019-05-28] MEDS: oxyCODONE HCL 5 MG TABLET PO PRN ×3 (11:39→21:23)
[2019-05-28] MEDS: IBUPROFEN 600 MG TABLET (FP) PO PRN ×3 (11:40→21:24)
[2019-05-28] MEDS: SIMETHICONE 80 MG TAB.CHEW (FP) PO PRN ×3 (11:41→21:23)
[2019-05-28] MEDS: diphenhydrAMINE HCL 25 MG CAPSULE (FP) PO SCH ×3 (12:18→23:31)
--- NOTE | 2019-05-28 12:57 | PN ---
Progress Note (short form) - Note Progress Note: Anesthesia POD#1 S/P under Epidural and Duramorph VSS,no N/V,pain is bearable. Legs fully recovered. Aretha Griggs MD.
--- NOTE | 2019-05-28 17:52 | PN ---
Teaching Attending Note Name of Resident: Milly Siddiqi ATTENDING PHYSICIAN STATEMENT I saw and evaluated the patient. I reviewed the resident's note and discussed the case with the resident. I agree with the resident's findings and plan as documented. consulted for eye swelling and pruritis SUBJECTIVE:states eye swelling has improved and pruritis resolved. had copious eye drainage this AM but has stopped since this AM. has hx of seasonal allergies but swelling is not to this extreme. states overall has improved. denies Cp, SOB,f ever, chills, lips or tongue swelling, N/V/C/D or any breathing symptoms. OBJECTIVE: Last Vital Signs Temp Pulse Resp BP Pulse Ox 98.4 F 84 20 101/67 98 05/28/19 14:30 05/28/19 14:30 05/28/19 14:30 05/28/19 14:30 05/27/19 04:15 General NAD HEENT B/L inferior orbit puffiness. no tenderness or warmth. conjunctiva are clear. no exudate. EOMI, PERRL no rashes ASSESSMENT AND PLAN: 24yo F wtih no PMH arrived in labor with due to failure to progress with tachycardia and concern for chorioamionitis. Consulted for eye swelling and pruritis 1. B/L orbital swelling- most likely seasonal allergy flare vs allergic reaction to contact with something in the OR. pt did not receive general anesthesia. has already improved with benadryl. would continue Q6H for next 24H then prn as this is safe in however can cause decrease milk supply. cold compresses prn. monitor symptoms but does not appear to be systemic. 2. Acute blood loss anemia- currently receiving blood transfusion. check post- op cbc 3. thank you for this consultative opportunity. will follow along with you
--- NOTE | 2019-05-28 18:33 | PN ---
Post Progress Note - Subjective Subjective: No complaints. Feels better after PRBC x 2 units. Ambulating. Pain is well controlled. Tolerating diet. Passing flatus. Post Day: 1 Type of Delivery: Primary C/S Vital Signs: Vital Signs Temperature 98 F 05/28/19 18:02 Pulse Rate 76 05/28/19 18:02 Respiratory Rate 20 05/28/19 18:02 Blood Pressure 105/65 05/28/19 18:02 O2 Sat by Pulse Oximetry (%) 98 05/27/19 04:15 Breast Exam: Yes: Soft Uterus: Yes: Fundus Firm, Fundus below umbilicus, Non-tender Incision: Yes: Dressing dry and intact Abdomen/GI: Yes: Abdomen soft, Passing flatus, Tolerating PO Lochia: Yes: Rubra Lochia, amount: Small Extremities: Yes: Calves non-tender Perineum: Yes: Intact Activity: Ambulating - Labs Labs: CBC WBC 12.3 K/mm3 (4.0-10.0) H 05/28/19 06:45 RBC 3.13 M/mm3 (3.60-5.2) L 05/28/19 06:45 Hgb 6.5 GM/dL (10.7-15.3) L* 05/28/19 06:45 Hct 21.5 % (32.4-45.2) L D 05/28/19 06:45 MCV 68.6 fl (80-96) L 05/28/19 06:45 MCH 20.7 pg (25.7-33.7) L 05/28/19 06:45 MCHC 30.2 g/dl (32.0-36.0) L 05/28/19 06:45 RDW 16.6 % (11.6-15.6) H 05/28/19 06:45 Plt Count 269 K/MM3 (134-434) 05/28/19 06:45 MPV 7.8 fl (7.5-11.1) 05/28/19 06:45 Absolute Neuts (auto) 9.5 K/mm3 (1.5-8.0) H 05/28/19 06:45 Neutrophils % 77.6 % (42.8-82.8) D 05/28/19 06:45 Lymphocytes % 12.7 % (8-40) D 05/28/19 06:45 Monocytes % 7.3 % (3.8-10.2) 05/28/19 06:45 Eosinophils % 1.9 % (0-4.5) D 05/28/19 06:45 Basophils % 0.5 % (0-2.0) 05/28/19 06:45 Nucleated RBC % 0 % (0-0) 05/28/19 06:45 Hypochromia 2+ 05/25/19 20:45 Platelet Estimate Normal 05/25/19 20:45 Platelet Comment Present 05/25/19 20:45 Polychromasia 1+ 05/25/19 20:45 Poikilocytosis 1+ 05/25/19 20:45 Microcytosis 2+ 05/25/19 20:45 Macrocytosis 1+ 05/25/19 20:45 Ovalocytes 1+ 05/25/19 20:45 Kurtis Cells 1+ 05/25/19 20:45 Assessment/Plan POD # 1 s/p repeat LT C/S Pt is stable and afebrile. She is asymptomatic for anemia Advised to ambulate. Hold off on advancing diet till flatus. Asymptomatic for anemia
[2019-05-29] MEDS: diphenhydrAMINE HCL 25 MG CAPSULE (FP) PO SCH (05:58)
--- NOTE | 2019-05-29 06:11 | PN ---
Progress Note (short form) - Note Progress Note: pod 2 s/p c/s, anemia , received 2 u PRBC, no excess ,vaginal bleeding CBC, BMP 05/28/19 06:45 05/25/19 20:45 abdomen soft, no distension, no cva incision dry, clean no calf tenderness plan ambulate , cbc pain management Problem List - Problems (1) with 37 weeks completed gestation Code(s): Z3A.37 - 37 WEEKS GESTATION OF (2) IUGR (intrauterine growth restriction) affecting care of mother Code(s): O36.5990 - MATERN CARE FOR OTH OR SUSP POOR FETL GRTH, UNSP TRI, UNSP Qualifiers: Fetus number: single or unspecified fetus Trimester: third trimester Qualified Code(s): O36.5930 - Maternal care for other known or suspected poor growth, third trimester, not applicable or unspecified
[2019-05-29] MEDS: IBUPROFEN 600 MG TABLET (FP) PO PRN ×3 (10:25→23:44)
[2019-05-29] MEDS: oxyCODONE HCL 5 MG TABLET PO PRN ×3 (10:26→23:44)
[2019-05-29] MEDS: SIMETHICONE 80 MG TAB.CHEW (FP) PO PRN ×3 (10:28→23:44)
[2019-05-29 10:48] VITALS: TEMP 98
--- NOTE | 2019-05-29 11:11 | PATH ---
Surgical Pathology Report Patient Name: ROBERT FRIAS [facility]. Rec. #: [id number] /Age/Gender: 1995 (Age: 24) / F Account: [id number] Location: [facility] OBS/MANAGER ACCESS Taken: 05/27/2019 Received: 05/27/2019 Reported: 05/29/2019 Physicians: Jessy Arreguin M.D. Specimen(s) Received PLACENTA Clinical History , 37.6 weeks Anemia, IUGR Final Diagnosis PLACENTA, SECTION: 504 G THIRD TRIMESTER PLACENTA WITH TRIVASCULAR UMBILICAL CORD AND UNREMARKABLE PLACENTAL MEMBRANES. Electronically Signed Luna Barone M.D. Gross Description The specimen is received fresh labeled placenta and is a 504 gram, 18 x 14 x 1.5 cm. placenta with attached membranes and umbilical cord. The attached membranes are clear and translucent and insert marginally. The umbilical cord measures 16 cm. in length and averages 1.5 cm. in diameter. The cord inserts eccentrically, 5 cm. to the nearest margin. No true knots or strictures are identified. Cut surface of the umbilical cord reveals 3 vessels. The surface is kellogg-blue with minimal fibrin deposition and appropriate caliber vessels. The maternal surface is red-brown with focal defects. Sectioning reveals red-brown, spongy parenchyma. No lesions are identified. Napkin Band Wrapper sections are submitted in three cassettes as follows: 1- membrane rolls and umbilical cord; 2-3- full thickness sections of placenta. MLSZ/05/27/2019 sanml/05/27/2019
--- NOTE | 2019-05-29 12:07 | PN ---
Teaching Attending Note Name of Resident: Geronimo Garland ATTENDING PHYSICIAN STATEMENT I saw and evaluated the patient. I reviewed the resident's note and discussed the case with the resident. I agree with the resident's findings and plan as documented. SUBJECTIVE:swelling and itchying has resolved. denies CP, SOB, fever, chills, N/ V/C/D OBJECTIVE: Last Vital Signs Temp Pulse Resp BP Pulse Ox 98.0 F 67 19 127/75 98 05/29/19 10:05/29/19 10:05/29/19 10:05/29/19 10:05/27/19 04:15 General NAD HEENT orbital swelling resolved. conjunctive clear, no exudate. ASSESSMENT AND PLAN: 24yo F wtih no PMH arrived in labor with due to failure to progress with tachycardia and concern for chorioamionitis. Consulted for eye swelling and pruritis 1. B/L orbital swelling- most likely seasonal allergy flare vs allergic reaction to contact with something in the OR. completely resolved. would avoid benadryl as needed as this can impact breastmilk supply. 2. Acute blood loss anemia- s/p 2 units PRBC this hospital stay. would check post-transfusion CBC. 3. thank you for this consultative opportunity. will sign off at this time. please re-consult if needed
--- NOTE | 2019-05-29 13:01 | CONSULT ---
Consultation: REQUESTING PROVIDER: CONSULT REQUEST: We have been asked to medically evaluate this patient for swollen, itchy eyes. HISTORY OF PRESENT ILLNESS: 24 y/o female with PMH seasonal allergies and iron deficiency, whom c/o eye irritation and found to have presentation consistent with local allergies. Symptoms have resolved completely with Benadryl. Today she offers no complaints. She says her seasonal allergies are treated with loratadine at home. She denies SOB, CP, wheezing, vision changes, pruritus. REVIEW OF SYSTEMS: CONSTITUTIONAL: Absent: fever, chills, diaphoresis, generalized weakness, malaise, loss of appetite, weight change HEENT: Absent: rhinorrhea, nasal congestion, throat pain, throat swelling, difficulty swallowing, mouth swelling, ear pain, eye pain, visual changes CARDIOVASCULAR: Absent: chest pain, syncope, palpitations, irregular heart rate, lightheadedness , peripheral edema RESPIRATORY: Absent: cough, shortness of breath, dyspnea with exertion, orthopnea, wheezing, stridor, hemoptysis GASTROINTESTINAL: Absent: abdominal pain, abdominal distension, nausea, vomiting, diarrhea, constipation, melena, hematochezia GENITOURINARY: Absent: dysuria, frequency, urgency, hesitancy, hematuria, flank pain, genital pain MUSCULOSKELETAL: Absent: myalgia, arthralgia, joint swelling, back pain, neck pain SKIN: Absent: rash, itching, pallor HEMATOLOGIC/IMMUNOLOGIC: Absent: easy bleeding, easy bruising, lymphadenopathy, frequent infections ENDOCRINE: Absent: unexplained weight gain, unexplained weight loss, heat intolerance, cold intolerance NEUROLOGIC: Absent: headache, focal weakness or paresthesias, dizziness, unsteady gait, seizure, mental status changes, bladder or bowel incontinence PSYCHIATRIC: Absent: anxiety, depression, suicidal or homicidal ideation, hallucinations. PHYSICAL EXAMINATION Vital Signs - 24 hr 05/28/19 05/28/19 05/28/19 13:45 14:15 14:30 Temperature 98.5 F 99 F 98.4 F Pulse Rate 76 85 84 Respiratory 20 20 20 Rate Blood Pressure 105/52 L 101/53 L 101/67 05/28/19 05/28/19 05/29/19 18:02 22:00 10:00 Temperature 98 F 98.5 F 98.0 F Pulse Rate 76 73 67 Respiratory 20 18 19 Rate Blood Pressure 105/65 99/61 127/75 GENERAL: Awake, alert, and fully oriented, in no acute distress. HEAD: Normal with no signs of trauma. EYES: Pupils equal, round and reactive to light, extraocular movements intact, sclera anicteric, conjunctiva clear. No lid lag. EARS, NOSE, THROAT: Ears normal, nares patent, oropharynx clear without exudates. Moist mucous membranes. NECK: Normal range of motion, supple without lymphadenopathy, JVD, or masses. LUNGS: Breath sounds equal, clear to auscultation bilaterally. No wheezes, and no crackles. No accessory muscle use. HEART: Regular rate and rhythm, normal S1 and S2 without murmur, rub or gallop. ABDOMEN: Soft, nontender, not distended, normoactive bowel sounds, no guarding, no rebound, no masses. No hepatomegaly or splenomegaly. MUSCULOSKELETAL: Normal range of motion at all joints. No bony deformities or tenderness. No CVA tenderness. UPPER EXTREMITIES: 2+ pulses, warm, well-perfused. No cyanosis. No clubbing. Cap refill <2 seconds. No peripheral edema. LOWER EXTREMITIES: 2+ pulses, warm, well-perfused. No calf tenderness. No peripheral edema. NEUROLOGICAL: Cranial nerves II-XII intact. Normal speech. Normal gait. PSYCHIATRIC: Cooperative. Good eye contact. Appropriate mood and affect. SKIN: Warm, dry, normal turgor, no rashes or lesions noted. Laboratory Results - last 24 hr 05/25/19 20:45 Blood Type O POSITIVE Antibody Screen Negative Crossmatch See Detail Active Medications Benzocaine (Americaine 20% [place] -) 1 spray TP PRN PRN PRN Reason: Pain - Topical Benzocaine (Americaine Ointment -) 1 applic NE PRN PRN PRN Reason: Pain - Topical Bisacodyl (Dulcolax Suppository -) 10 mg RC PRN PRN PRN Reason: CONSTIPATION Diphenhydramine HCl (Benadryl -) 25 mg PO Q8H PRN PRN Reason: FOR ITCHING Last Admin: 05/28/19 18:12 Dose: 25 mg Ibuprofen (Motrin -) 600 mg PO Q4H PRN PRN Reason: PAIN LEVEL 1 - 3 Last Admin: 05/29/19 10:25 Dose: 600 mg Methylergonovine Maleate (Methergine Injection -) 0.2 mg IM Q4H PRN PRN Reason: Excessive Bleeding (L&D) Naloxone HCl (Narcan -) 0.4 mg IVPUSH PRN PRN PRN Reason: Sedation Oxycodone HCl (Roxicodone -) 5 mg PO Q4H PRN PRN Reason: PAIN LEVEL 4 - 6 Last Admin: 05/29/19 10:26 Dose: 5 mg Oxycodone HCl (Roxicodone -) 10 mg PO Q4H PRN PRN Reason: PAIN LEVEL 7 - 10 Senna/Docusate Sodium (Pericolace -) 2 tablet PO HS PRN PRN Reason: CONSTIPATION Simethicone (Mylicon -) 80 mg PO Q4H PRN PRN Reason: GAS Last Admin: 05/29/19 10:28 Dose: 80 mg Witch Shahla/Glycerin (Tucks Pads -) 1 pad TP PRN PRN PRN Reason: Pain - Topical ASSESSMENT/PLAN: 24 y/o female with PMH seasonal allergies and iron deficiency, whom c/o eye irritation and found to have presentation consistent with local allergies. Symptoms have resolved completely with Benadryl. Today there was no residual dermatological and ophthalmological pathology and lungs were CTAB with no wheezes. Pt takes loratadine PRN during allergy season as home med. She was told to avoid Benadryl as needed as this can impact breastmilk supply. She was educated on allergy avoidance and recommended treatment. Pt is s/p 2 units PRBC this hospital stay and it is recommended CBC repeated. Dispo: The medical team will now sign off. Thank you for this consultative opportunity. Visit type - Emergency Visit Emergency Visit: No - New Patient This patient is new to me today: Yes Date on this admission: 05/29/19 - Critical Care Critical Care patient: No ATTENDING PHYSICIAN STATEMENT I saw and evaluated the patient. I reviewed the resident's note and discussed the case with the resident. I agree with the resident's findings and plan as documented. SUBJECTIVE: OBJECTIVE: ASSESSMENT AND PLAN:
[2019-05-29] MEDS ORDERED: SENNOSIDES/DOCUSATE COMBO (SENNA PLUS) TABLET (UD) PO PRN (22:00)
--- NOTE | 2019-05-30 06:24 | DS ---
Physical Exam-HOSPITAL PHARMACY DIRECTOR Vital Signs: Vital Signs Temperature 98.0 F 05/29/19 21:21 Pulse Rate 76 05/29/19 21:21 Respiratory Rate 20 05/29/19 21:21 Blood Pressure 111/66 05/29/19 21:21 O2 Sat by Pulse Oximetry (%) 98 05/27/19 04:15 Constitutional: Yes: Well Nourished, No Distress, Calm Eyes: Yes: WNL, Conjunctiva Clear, EOM Intact HENT: Yes: WNL, Atraumatic, Normocephalic Neck: Yes: WNL, Supple, Trachea Midline Cardiovascular: Yes: WNL, Regular Rate and Rhythm Respiratory: Yes: WNL, Regular, CTA Bilaterally Gastrointestinal: Yes: WNL ...Rectal Exam: Yes: WNL Renal/: Yes: WNL Breast(s): Yes: WNL Musculoskeletal: Yes: WNL Extremities: Yes: WNL Integumentary: Yes: WNL Wound/Incision: Yes: Clean/Dry, Well Approximated, Sutures Intact Neurological: Yes: WNL, Alert, Oriented ...Motor Strength: WNL Psychiatric: Yes: WNL, Alert, Oriented Labs: CBC, BMP 05/28/19 06:45 05/25/19 20:45 Delivery - Delivery Section: Primary, Low Flap Transverse Type of Anesthesia: Epidural Episiotomy/Laceration: None EBL (cc): 500 Delivery, Single - Stages of Labor Date 1st Stage Initiatied: 05/26/19 Time 1st Stage Initiated: 15:00 Date of Delivery: 05/27/19 Time of Delivery: 01:52 Time Placenta Delivered: 01:53 Placenta: Yes: Expressed - Condition of Infant Medical 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 Director/Assistant 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 Present: Yes Name: Sammi Holman Infant Gender: Female Weight: 5 lb 6 oz Position: Right, OA Total Hours ROM (Hrs/Mins): 11h - 1 Minute Total Score: 9 5 Minutes Total Score: 9 - [place] Feeding Plan Initial Plan: Elected not to breastfeed exclusively throughout hospitalization Discharge Summary Reason For Visit: INDUCTION Current Active Problems IUGR (intrauterine growth restriction) affecting care of mother (Acute) with 37 weeks completed gestation (Acute) Procedures: Principal: primary LST c/s Hospital Course: anemia, received 2 u PRBC Condition: Good - Instructions Diet, Activity, Other Instructions: regular diet, follow up office 1 week. if pain, heavy vaginal bleeding, fever call md Referrals: Rogerio Fair MD [Staff Physician] - Disposition: HOME - Home Medications Comprehensive Discharge Medication List: Ambulatory Orders Vit 93/Iron Fum/Folic [ Formula Tablet] 1 each PO DAILY Ferrous Sulfate [Feosol] 325 mg PO BID 05/24/19 Ibuprofen [Motrin -] 600 mg PO QID #28 tablet 05/29/19
[2019-05-30 08:19] LABS: BASO % 0.8 % (0-2.0); EOS % 3.4 % (0-4.5); HEMATOCRIT 29.4 % (32.4-45.2); HEMOGLOBIN 9.5 GM/dL (10.7-15.3); LYMPH % 19.9 % (8-40); MCH 22.7 pg (25.7-33.7); MCHC 32.1 g/dl (32.0-36.0); MEAN CELL VOLUME 70.7 fl (80-96); MEAN PLT VOLUME 7.8 fl (7.5-11.1); MONO % 7.7 % (3.8-10.2); NEUT % 68.2 % (42.8-82.8); PLATELET COUNT 301 K/MM3 (134-434); RBC 4.16 M/mm3 (3.60-5.2); RDW 18.3 % (11.6-15.6); WHITE BLOOD COUNT 7.7 K/mm3 (4.0-10.0)
[2019-05-30 08:52] VITALS: BP 123/76; PULSE 54
[2019-05-30] MEDS: IBUPROFEN 600 MG TABLET (FP) PO PRN (10:41)
[2019-05-30] MEDS: SIMETHICONE 80 MG TAB.CHEW (FP) PO PRN (10:42)
== END 2019-05-30 14:15 | disposition home or self-care (01) | DRG 540 ==
LOC: JLDR 20:10 → J3W 05-27 05:05
PROVIDERS: ADMIT Obstetrics & Gynecology; ATTEND Obstetrics & Gynecology
PROC: 10D00Z1 Extraction of Products of Conception, Low, Open Approach (ICD-10-PCS; principal; 2019-05-27)
DX: O36.5930 Maternal care for other known or suspected poor fetal growth, third trimester, not applicable or unspecified (principal); O76 Abnormality in fetal heart rate and rhythm complicating labor and delivery; O41.1230 Chorioamnionitis, third trimester, not applicable or unspecified; Z3A.37 37 weeks gestation of pregnancy; Z37.0 Single live birth
CPT/HCPCS: 36415; 36430; 36511; 36600; 80048; 82803; 85025; 85610; 85730; 86593; 86850; 86900; 86901; 86922; 88307-TC; J0131; P9038; P9058

== ENCOUNTER 2021-06-09 18:28 | Emergency (ER) | payer OTHER ==
[2021-06-09 18:39] VITALS: BP 113/67; PULSE 113; TEMP 97.6; BMI 21.3
[2021-06-09] MEDS ORDERED: ONDANSETRON *ODT* 4 MG TABLET SL ONE (20:06)
[2021-06-09] MEDS ORDERED: ACETAMINOPHEN 325 MG TABLET (FP) PO ONE (20:06)
[2021-06-09] MEDS ORDERED: ONDANSETRON *ODT* 4 MG TABLET ONE (20:16)
[2021-06-09] MEDS ORDERED: ACETAMINOPHEN 325 MG TABLET (FP) ONE (20:16)
[2021-06-09 20:27] LABS: HCG,QUALITATIVE URINE Negative
[2021-06-09 20:31] LABS: EPI CELLS 4 /uL (0-25.1); HYALINE CASTS 1 /uL (0-3.1); URINE APPEARANCE TURBID; URINE BACTERIA 139 /uL (0-1359); URINE BILIRUBIN NEGATIVE (NEGATIVE); URINE COLOR YELLOW; URINE GLUCOSE (UA) NEGATIVE (NEGATIVE); URINE KETONE 3+ (NEGATIVE); URINE LEUK ESTERASE 3+ (NEGATIVE); URINE NITRITE NEGATIVE (NEGATIVE); URINE PROTEIN 2+ (NEGATIVE); URINE RBC 270 /uL (0-23.9); URINE UROBILINOGEN 0.2 mg/dL (0.2-1.0); URINE WBC 2531 /uL (0-25.8)
[2021-06-09] MEDS ORDERED: CEPHALEXIN MONOHYDRATE 500 MG CAPSULE (UD) PO ONE (20:32)
[2021-06-09] MEDS ORDERED: CEPHALEXIN MONOHYDRATE 500 MG CAPSULE (UD) ONE (20:53)
== END 2021-06-09 21:54 | disposition home or self-care (01) ==
LOC: JER 18:28
DX: N10 Acute pyelonephritis (principal)
CPT/HCPCS: 36415; 81003; 84703; 87086; 87186; 87491; 87591; 99283-25; Q0162

== ENCOUNTER 2022-12-24 02:55 | Inpatient (IN) | payer OTHER ==
[2022-12-24] MEDS ORDERED: ELECTROLYTE-148 SOLN 500 ML IV ONE (03:30)
[2022-12-24] MEDS ORDERED: CITRIC ACID/SODIUM CITRATE 30 ML UNIT-DOSE CUP PO ONE (03:30)
[2022-12-24] MEDS ORDERED: ELECTROLYTE-148 SOLN 1,000 ML IV SCH (04:00)
[2022-12-24 04:49] VITALS: BMI 28.3
[2022-12-24] MEDS ORDERED: METHYLERGONOVINE MALEATE 0.2 MG/1 ML AMP IM PRN (05:00)
[2022-12-24] MEDS ORDERED: SIMETHICONE 80 MG TAB.CHEW (FP) PO PRN (05:00)
[2022-12-24] MEDS ORDERED: ACETAMINOPHEN 325 MG TABLET (FP) PO PRN (05:00)
[2022-12-24] MEDS ORDERED: SENNOSIDES/DOCUSATE COMBO (SENNA PLUS) TABLET (UD) PO PRN (05:00)
[2022-12-24] MEDS ORDERED: morphine SULFATE/PF 1 MG/2 ML (2cc Syringe - QUVA) ONE (05:05)
[2022-12-24] MEDS ORDERED: PROPOFOL 20 ML ONE (05:06)
[2022-12-24] MEDS ORDERED: SUCCINYLCHOLINE CHLORIDE 200 MG/10 ML SYRINGE ONE (05:06)
[2022-12-24] MEDS ORDERED: AZITHROMYCIN IVPB 500 MG/250 ML BAG IVPB ONE (05:42)
[2022-12-24] MEDS ORDERED: morphine SULFATE/PF 1 MG/2 ML (2cc Syringe - QUVA) EP ONE (06:21)
[2022-12-24] MEDS: OXYTOCIN 20 UNITS in 0.9% NS 20 UNIT/1,000 ML INFUS.BAG IV SCH ×2 (07:00→15:12)
[2022-12-24] MEDS: IBUPROFEN 800 MG/8 ML IJ IVPB PRN ×2 (07:15→18:29)
[2022-12-24] MEDS ORDERED: IBUPROFEN 800 MG/8 ML IJ IVPB ONE (07:17)
[2022-12-24 07:43] VITALS: RESP 18
[2022-12-24] MEDS ORDERED: OXYTOCIN 20 UNITS in 0.9% NS 20 UNIT/1,000 ML INFUS.BAG IV ONE (07:59)
[2022-12-24 08:04] LABS: CORD BASE EXCESS -5.3 mmol/L (0-2); CORD HCO3 20.8 mmHg (20-29); CORD PCO2 42.5 mmHg (30-78); CORD pH 7.307 (7.14-7.44)
[2022-12-24 08:07] LABS: CORD BASE EXCESS -11.5 mmol/L (0-2); CORD HCO3 16.5 mmHg (20-29); CORD PCO2 44.9 mmHg (30-78); CORD pH 7.184 (7.14-7.44)
[2022-12-25] MEDS: IBUPROFEN 800 MG/8 ML IJ IVPB PRN (01:42)
[2022-12-25] MEDS ORDERED: BISACODYL 10 MG SUPP.RECT RC PRN (05:00)
[2022-12-25 08:55] LABS: BASO % 0.4 % (0-2.0); EOS % 0.9 % (0-4.5); HEMATOCRIT 25.8 % (32.4-45.2); HEMOGLOBIN 8.3 GM/dL (10.7-15.3); LYMPH % 10.3 % (8-40); MCH 23.8 pg (25.7-33.7); MCHC 32.2 g/dl (32.0-36.0); MEAN CELL VOLUME 73.8 fl (80-96); MONO % 4.8 % (3.8-10.2); NEUT % 83.6 % (42.8-82.8); PLATELET COUNT 269 10^3/uL (134-434); RBC 3.49 M/mm3 (3.60-5.2); RDW 15.6 % (11.6-15.6); WHITE BLOOD COUNT 14.5 K/mm3 (4.0-10.0)
[2022-12-25] MEDS ORDERED: oxyCODONE HCL 5 MG TABLET PO PRN ×2 (09:00)
[2022-12-25] MEDS: FERROUS SO4 325 MG TABLET (FP) PO SCH ×2 (09:56→21:45)
[2022-12-25] MEDS: PRENATAL VITAMINS W/ FOLIC ACID TABLET (FP) PO SCH (09:56)
[2022-12-25] MEDS: IBUPROFEN 600 MG TABLET (FP) PO PRN ×3 (09:58→21:45)
[2022-12-25] MEDS: ELECTROLYTE-148 SOLN 1,000 ML IV SCH ×2 (19:56→19:57)
[2022-12-25] MEDS: OXYTOCIN 20 UNITS in 0.9% NS 20 UNIT/1,000 ML INFUS.BAG IV SCH (19:56)
[2022-12-25 22:39] VITALS: TEMP 98.1
[2022-12-26 08:55] VITALS: BP 114/67; PULSE 82
[2022-12-26] MEDS: FERROUS SO4 325 MG TABLET (FP) PO SCH (09:18)
[2022-12-26] MEDS: IBUPROFEN 600 MG TABLET (FP) PO PRN (09:18)
[2022-12-26] MEDS: PRENATAL VITAMINS W/ FOLIC ACID TABLET (FP) PO SCH (09:18)
== END 2022-12-26 15:25 | disposition home or self-care (01) | DRG 540 ==
LOC: JDEL 02:55 → JLDR 03:28 → J3W 08:00
PROVIDERS: ADMIT Obstetrics & Gynecology; ATTEND Obstetrics & Gynecology
PROC: 10D00Z1 Extraction of Products of Conception, Low, Open Approach (ICD-10-PCS; principal; 2022-12-24)
DX: O34.211 Maternal care for low transverse scar from previous cesarean delivery (principal); N85.8 Other specified noninflammatory disorders of uterus; Z3A.39 39 weeks gestation of pregnancy; Z37.0 Single live birth
CPT/HCPCS: 36415; 36600; 82803; 85025; 86850; 86900; 86901; 88307-TC; C9803-CS; U0003; U0005